=== PATIENT | female | born 1935 | race Caucasian/White ===

== ENCOUNTER 2023-09-02 09:55 | Inpatient (IN) | payer MEDICARE, OTHER ==
[~2023-09-02] VITALS: Ht 160 cm; Wt 78.3 kg
[2023-09-02] MEDS ORDERED: MORPHINE SULFATE 4 MG/ML SYR/VIAL IV ONE (13:00)
[2023-09-02] MEDS ORDERED: ONDANSETRON HCL 4 MG/2 ML VIAL IV ONE (13:00)
[2023-09-02 14:07] LABS: Albumin 4.3 g/dL (3.2-4.8); Alkaline Phosphatase 61 U/L (46-116); Aspartate Aminotransferase 19 U/L (13-40); Bilirubin, Total 0.7 mg/dL (0.2-1.0); Calcium 9.8 mg/dL (8.5-10.1); Chloride 106 mmol/L (98-107); Glucose 112 mg/dL (74-106); Potassium 4.2 mmol/L (3.5-5.1); Sodium 139 mmol/L (136-145); Total Protein 6.9 g/dL (5.7-8.2)
[2023-09-02 14:10] LABS: Alanine Aminotransferase < 9 U/L (7-40); Anion Gap 8 (5-15); Carbon Dioxide 25 mmol/L (20-30)
[2023-09-02 14:11] LABS: BUN/Creatinine Ratio 9.5 (10.0-20.0); Blood Urea Nitrogen 6 mg/dL (9-23)
[2023-09-02 14:20] LABS: Basophils # (auto) 0 10 ^3/uL (0-0.2); Basophils % (auto) 0.2 % (0.0-2.0); Eosinophils # (auto) 0 10 ^3/uL (0-0.8); Eosinophils % (auto) 0.1 % (0.0-7.0); Lymphocytes # (auto) 0.6 10 ^3/uL (0.4-5.4); Lymphocytes % (auto) 3.5 % (10.0-50.0); Mean Corpuscular Hgb Conc. 32.6 g/dL (32.0-36.0); Monocytes # (auto) 1.1 10 ^3/uL (0-1.3); Monocytes % (auto) 6.5 % (0.0-12.0); Neutrophils # (auto) 14.6 10 ^3/uL (1.6-8.6); Neutrophils % (auto) 89.7 % (37.0-80.0); Red Blood Cells 4.64 10^6/uL (4.0-5.20); Red Cell Distribution Width 14.9 % (11.8-14.3); White Blood Cell 16.3 10^3/uL (4.4-10.8)
[2023-09-02 14:35] LABS: INR 1.08 (0.9-1.15); Partial Thromboplastin Time 27.3 SEC (24.5-34.5); Prothrombin Time 11.3 sec (9.3-11.8)
[2023-09-02 15:46] LABS: Urine Bacteria NONE SEEN /hpf (None Seen); Urine Blood Negative /uL (Negative); Urine Clarity Clear (Clear); Urine Color Yellow (Yellow); Urine Protein, UAD Negative (Negative); Urine Specific Gravity 1.016 (1.001-1.035); Urine Urobilinogen Normal (Negative); Urine WBC 1 /hpf (0 - 5); Urine pH 6.5 (5.0-8.0)
[2023-09-02] MEDS ORDERED: HYDROcodone-ACET 5/325MG TAB PO ONE (16:30)
[2023-09-02] MEDS ORDERED: ACETAMINOPHEN 325 MG TAB PO PRN (16:45)
[2023-09-02] MEDS: SODIUM CHLORIDE 0.9% 1,000 ML IV SCH (16:45)
[2023-09-02] MEDS ORDERED: PANTOPRAZOLE 40 MG/10 ML VIAL INJ IV ONE (16:45)
[2023-09-02] MEDS ORDERED: cefTRIAXone 1GM/50ML D5W 50 ML IV ONE (17:45)
[2023-09-02] MEDS ORDERED: SODIUM CHLORIDE 0.9% 1,000 ML IV ONE (17:45)
[2023-09-02 20:10] VITALS: PULSE 69; RESP 18; O2SAT 94
[2023-09-02] MEDS: HYDROcodone-ACET 5/325MG TAB PO PRN (22:07)
[2023-09-02] MEDS: hydrALAZINE HCL 20 MG/ML VL IV PRN (22:14)
[2023-09-03] MEDS: ONDANSETRON HCL 4 MG/2 ML VIAL IV PRN ×2 (01:52→10:31)
[2023-09-03] MEDS: MORPHINE SULFATE INJ 2 MG/ml SYRG IV PRN ×2 (01:53→09:26)
[2023-09-03] MEDS: SODIUM CHLORIDE 0.9% 1,000 ML IV SCH (02:01)
[2023-09-03 02:14] LABS: COVID19 ANTIGEN SOFIA FIA NEGATIVE (NEGATIVE)
[2023-09-03 05:29] LABS: Basophils # (auto) 0 10 ^3/uL (0-0.2); Basophils % (auto) 0.2 % (0.0-2.0); Eosinophils # (auto) 0 10 ^3/uL (0-0.8); Eosinophils % (auto) 0.1 % (0.0-7.0); Hematocrit 32.7 % (36.0-46.0); Hemoglobin 11.1 g/dL (12.2-16.2); Lymphocytes # (auto) 0.7 10 ^3/uL (0.4-5.4); Lymphocytes % (auto) 7.1 % (10.0-50.0); Mean Corpuscular Hemoglobin 28.4 pg (28.0-32.0); Mean Corpuscular Hgb Conc. 33.8 g/dL (32.0-36.0); Mean Corpuscular Volume 84.2 fL (80.0-100.0); Monocytes # (auto) 1.2 10 ^3/uL (0-1.3); Monocytes % (auto) 11.8 % (0.0-12.0); Neutrophils # (auto) 8.3 10 ^3/uL (1.6-8.6); Neutrophils % (auto) 80.8 % (37.0-80.0); Red Blood Cells 3.89 10^6/uL (4.0-5.20); Red Cell Distribution Width 14.3 % (11.8-14.3); White Blood Cell 10.3 10^3/uL (4.4-10.8)
[2023-09-03 05:40] LABS: Alanine Aminotransferase 22 U/L (7-40); Albumin 3.8 g/dL (3.2-4.8); Alkaline Phosphatase 52 U/L (46-116); Anion Gap 9 (5-15); Aspartate Aminotransferase 60 U/L (13-40); BUN/Creatinine Ratio 15.3 (10.0-20.0); Blood Urea Nitrogen 9 mg/dL (9-23); Calcium 8.6 mg/dL (8.7-10.4); Carbon Dioxide 24 mmol/L (20-30); Chloride 107 mmol/L (98-107); Glucose 126 mg/dL (74-106); Potassium 3.7 mmol/L (3.5-5.1); Sodium 140 mmol/L (136-145)
[2023-09-03 05:41] LABS: Bilirubin, Total 1.1 mg/dL (0.2-1.0); Total Protein 6.1 g/dL (5.7-8.2)
[2023-09-03 08:00] VITALS: PULSE 80; RESP 19; O2SAT 96
[2023-09-03 08:55] VITALS: BP 178/64; PULSE 69; RESP 18; TEMP 98.4; O2SAT 99
[2023-09-03] MEDS: cefTRIAXone 1GM/50ML D5W 50 ML IV SCH (09:27)
[2023-09-03] MEDS ORDERED: PANTOPRAZOLE 40 MG/10 ML VIAL INJ IV SCH (10:00)
[2023-09-03] MEDS ORDERED: EZET10TA22 PO (12:21)
[2023-09-03] MEDS ORDERED: DICL1.3P TOP (12:21)
[2023-09-03] MEDS ORDERED: PANT1INJ3 PO (12:24)
[2023-09-03] MEDS ORDERED: NIFE1TAB36 PO (12:24)
[2023-09-03] MEDS ORDERED: ASPI-543 PO (12:24)
[2023-09-03] MEDS ORDERED: ROSU20TA14 PO (12:24)
[2023-09-03] MEDS: hydrALAZINE HCL 20 MG/ML VL IV PRN (13:32)
[2023-09-03] MEDS ORDERED: NIFEdipine ER 30 MG TAB PO ONE (13:45)
[2023-09-03 17:00] VITALS: BP 166/53; PULSE 97; RESP 20; TEMP 97.8; O2SAT 90
[2023-09-03 20:00] VITALS: O2SAT 97
[2023-09-03 22:00] VITALS: BP 167/51; PULSE 72; RESP 19; TEMP 99.6; O2SAT 96
[2023-09-03 22:15] VITALS: BP 150/53; PULSE 87; RESP 17; TEMP 98.9
[2023-09-03] MEDS: HYDROcodone-ACET 5/325MG TAB PO PRN (22:36)
[2023-09-03] MEDS: ATORVASTATIN 20 MG TAB PO SCH (22:36)
[2023-09-04] VITALS (7 sets, daily range): BP systolic 145–150; BP diastolic 42–66; PULSE 65–72; RESP 16–19; TEMP 98.1–99.1; O2SAT 95–99
[2023-09-04] MEDS: SODIUM CHLORIDE 0.9% 1,000 ML IV SCH ×2 (01:45→18:47)
[2023-09-04] MEDS: MORPHINE SULFATE INJ 2 MG/ml SYRG IV PRN ×2 (05:42→17:52)
[2023-09-04] MEDS: cefTRIAXone 1GM/50ML D5W 50 ML IV SCH (09:00)
[2023-09-04] MEDS: NIFEdipine ER 30 MG TAB PO SCH (09:40)
[2023-09-04] MEDS ORDERED: ceFAZolin 2 GM/D5W100ml 100 ML IV ONE (09:44)
[2023-09-04] MEDS ORDERED: MIDAZOLAM HCL 2MG/2ML 2ml VIAL (1mg/ml) ONE (09:46)
[2023-09-04] MEDS ORDERED: fentaNYL CITRATE 100 MCG/2 ML VL ONE (09:46)
[2023-09-04] MEDS ORDERED: BUPIVACAINE 0.5% P/F INJ 10 ML VIAL ONE (09:56)
[2023-09-04] MEDS ORDERED: TETRACAINE 1% INJ 2 ML VIAL IJ ONE (09:57)
[2023-09-04] MEDS ORDERED: LACTATED RINGER'S 1,000 ML IV SCH (12:30)
[2023-09-04] MEDS ORDERED: ePHEDrine SULFATE 50 MG/ML AMP IV PRN (13:00)
[2023-09-04] MEDS ORDERED: MORPHINE SULFATE 4 MG/ML SYR/VIAL IV PRN (13:00)
[2023-09-04] MEDS ORDERED: ONDANSETRON HCL 4 MG/2 ML VIAL IV PRN (13:00)
[2023-09-04] MEDS ORDERED: LABETALOL HCL 5 MG/ML 4ML SYRINGE IV PRN (13:00)
[2023-09-04] MEDS ORDERED: HYDROmorphone HCL 2 MG/ML VL/or syr IV PRN (13:00)
[2023-09-04] MEDS ORDERED: MIDAZOLAM HCL 2MG/2ML 2ml VIAL (1mg/ml) IV PRN (13:00)
[2023-09-04] MEDS: HYDROcodone-ACET 5/325MG TAB PO PRN (18:52)
[2023-09-04] MEDS: ATORVASTATIN 20 MG TAB PO SCH (21:08)
[2023-09-05] VITALS (7 sets, daily range): BP systolic 134–158; BP diastolic 45–62; PULSE 88–101; RESP 16–20; TEMP 98–99.4; O2SAT 91–96
[2023-09-05 06:54] LABS: Basophils # (auto) 0 10 ^3/uL (0-0.2); Basophils % (auto) 0.2 % (0.0-2.0); Eosinophils # (auto) 0 10 ^3/uL (0-0.8); Eosinophils % (auto) 0.1 % (0.0-7.0); Hematocrit 25.6 % (36.0-46.0); Hemoglobin 8.6 g/dL (12.2-16.2); Lymphocytes # (auto) 0.7 10 ^3/uL (0.4-5.4); Lymphocytes % (auto) 6.6 % (10.0-50.0); Mean Corpuscular Hgb Conc. 33.8 g/dL (32.0-36.0); Mean Corpuscular Volume 85.9 fL (80.0-100.0); Monocytes # (auto) 1.5 10 ^3/uL (0-1.3); Monocytes % (auto) 14.9 % (0.0-12.0); Neutrophils # (auto) 7.9 10 ^3/uL (1.6-8.6); Neutrophils % (auto) 78.2 % (37.0-80.0); Red Blood Cells 2.98 10^6/uL (4.0-5.20); Red Cell Distribution Width 14.8 % (11.8-14.3); White Blood Cell 10.1 10^3/uL (4.4-10.8)
[2023-09-05 06:56] LABS: Alanine Aminotransferase 61 U/L (7-40); Albumin 3.4 g/dL (3.2-4.8); Alkaline Phosphatase 80 U/L (46-116); Anion Gap 9 (5-15); Aspartate Aminotransferase 67 U/L (13-40); BUN/Creatinine Ratio 21.6 (10.0-20.0); Bilirubin, Total 0.9 mg/dL (0.2-1.0); Blood Urea Nitrogen 11 mg/dL (9-23); Carbon Dioxide 26 mmol/L (20-30); Chloride 106 mmol/L (98-107); Glucose 137 mg/dL (74-106); Potassium 3.7 mmol/L (3.5-5.1); Sodium 141 mmol/L (136-145); Total Protein 5.5 g/dL (5.7-8.2)
[2023-09-05] MEDS: HYDROcodone-ACET 5/325MG TAB PO PRN ×3 (09:12→21:43)
[2023-09-05] MEDS: NIFEdipine ER 30 MG TAB PO SCH (09:12)
[2023-09-05] MEDS: ENOXAPARIN SOD 40 MG/0.4 ML SYRINGE SC SCH (09:13)
[2023-09-05] MEDS: SODIUM CHLORIDE 0.9% 1,000 ML IV SCH (09:13)
[2023-09-05] MEDS: hydrALAZINE HCL 20 MG/ML VL IV PRN (17:04)
[2023-09-05] MEDS: MORPHINE SULFATE INJ 2 MG/ml SYRG IV PRN (18:08)
[2023-09-05] MEDS: ATORVASTATIN 20 MG TAB PO SCH (21:43)
[2023-09-06] VITALS (9 sets, daily range): BP systolic 115–161; BP diastolic 43–56; PULSE 87–99; RESP 16–20; TEMP 98.5–99.3; O2SAT 90–98
[2023-09-06] MEDS: SODIUM CHLORIDE 0.9% 1,000 ML IV SCH (06:52)
[2023-09-06] MEDS: NIFEdipine ER 30 MG TAB PO SCH (09:29)
[2023-09-06] MEDS: ENOXAPARIN SOD 40 MG/0.4 ML SYRINGE SC SCH (09:29)
[2023-09-06] MEDS ORDERED: LORazepam 2MG/ML-1ML VIAL IV PRN (10:15)
[2023-09-06 10:20] LABS: Basophils # (auto) 0 10 ^3/uL (0-0.2); Eosinophils # (auto) 0 10 ^3/uL (0-0.8); Eosinophils % (auto) 0.5 % (0.0-7.0); Hematocrit 23.3 % (36.0-46.0); Hemoglobin 7.9 g/dL (12.2-16.2); Lymphocytes # (auto) 0.8 10 ^3/uL (0.4-5.4); Mean Corpuscular Hgb Conc. 33.8 g/dL (32.0-36.0); Monocytes # (auto) 1.2 10 ^3/uL (0-1.3); Red Cell Distribution Width 14.7 % (11.8-14.3); White Blood Cell 10.1 10^3/uL (4.4-10.8)
[2023-09-06 10:28] LABS: Basophils % (auto) 0.3 % (0.0-2.0); Lymphocytes % (auto) 7.9 % (10.0-50.0); Mean Corpuscular Hemoglobin 29.2 pg (28.0-32.0); Mean Corpuscular Volume 86.4 fL (80.0-100.0); Monocytes % (auto) 11.8 % (0.0-12.0); Neutrophils # (auto) 8.1 10 ^3/uL (1.6-8.6); Neutrophils % (auto) 79.5 % (37.0-80.0)
[2023-09-06] MEDS: HYDROcodone-ACET 5/325MG TAB PO PRN ×2 (11:09→18:07)
[2023-09-06 12:17] LABS: COVID19 ANTIGEN SOFIA FIA NEGATIVE (NEGATIVE)
[2023-09-06 12:55] LABS: Free T4 (Free Thyroxine) 0.99 ng/dL (0.89-1.76)
[2023-09-06 12:59] LABS: Folate (Folic Acid) 7.4 ng/mL (>5.38)
== END 2023-09-06 21:09 | DRG 482 ==
LOC: ER 09:55 → EDBD 09:55 → OVERFLOW 16:44 → CENTRAL 09-03 08:58 → TELE-CENTR 09-04 19:00
PROVIDERS: ADMIT Nurse Practitioner Family; ATTEND Family Medicine
PROC: 0QS634Z Reposition Right Upper Femur with Internal Fixation Device, Percutaneous Approach (ICD-10-PCS; principal; 2023-09-04 10:36)
PROC: 30233N1 Transfusion of Nonautologous Red Blood Cells into Peripheral Vein, Percutaneous Approach (ICD-10-PCS; 2023-09-06)
DX: S72.141A Displaced intertrochanteric fracture of right femur, initial encounter for closed fracture (principal); D72.829 Elevated white blood cell count, unspecified; I10 Essential (primary) hypertension; F03.90 Unspecified dementia, unspecified severity, without behavioral disturbance, psychotic disturbance, mood disturbance, and anxiety; G89.29 Other chronic pain; E66.9 Obesity, unspecified; Z60.2 Problems related to living alone; Z20.822 Contact with and (suspected) exposure to COVID-19; E78.00 Pure hypercholesterolemia, unspecified; W06.XXXA Fall from bed, initial encounter; Z95.0 Presence of cardiac pacemaker; Y92.003 Bedroom of unspecified non-institutional (private) residence as the place of occurrence of the external cause; Z68.30 Body mass index [BMI] 30.0-30.9, adult; Z88.2 Allergy status to sulfonamides; Z82.49 Family history of ischemic heart disease and other diseases of the circulatory system; Z90.710 Acquired absence of both cervix and uterus; Z91.81 History of falling; Y93.89 Activity, other specified; Y92.098 Other place in other non-institutional residence as the place of occurrence of the external cause; Y99.8 Other external cause status; I16.0 Hypertensive urgency
CPT/HCPCS: 36415; 71045; 73502; 76000; 80053; 81001; 82607; 82746; 84439; 84443; 85025; 85610; 85730; 86850; 86900; 86901; 86920; 87040; 87426; 93005; 93306; 97110; 97163; A6198; C9113; G0378; J2250; J2405; J3490

== ENCOUNTER 2023-09-14 12:36 | Inpatient (IN) | payer MEDICARE ==
[~2023-09-14] VITALS: Ht 167.6 cm; Wt 79.4 kg
[~2023-09-14 12:36] MED LIST: ASPI-543 PO; DICL1.3P TOP; EZET10TA22 PO; NIFE1TAB36 PO; PANT1INJ3 PO; ROSU20TA14 PO
[2023-09-14] MEDS ORDERED: SODIUM CHLORIDE 0.9% 500 ML IVB ONE (13:00)
[2023-09-14 14:14] LABS: Basophils # (auto) 0 10 ^3/uL (0-0.2); Basophils % (auto) 0.2 % (0.0-2.0); Eosinophils # (auto) 0 10 ^3/uL (0-0.8); Hematocrit 30.8 % (36.0-46.0); Hemoglobin 10.1 g/dL (12.2-16.2); Lymphocytes # (auto) 0.6 10 ^3/uL (0.4-5.4); Lymphocytes % (auto) 9.7 % (10.0-50.0); Mean Corpuscular Hemoglobin 28.7 pg (28.0-32.0); Mean Corpuscular Hgb Conc. 32.9 g/dL (32.0-36.0); Mean Corpuscular Volume 87.1 fL (80.0-100.0); Monocytes % (auto) 16.6 % (0.0-12.0); Neutrophils # (auto) 4.6 10 ^3/uL (1.6-8.6); Neutrophils % (auto) 73.5 % (37.0-80.0); Nucleated Red Blood Cells % 0.1 %; Red Blood Cells 3.53 10^6/uL (4.0-5.20); Red Cell Distribution Width 16.5 % (11.8-14.3); White Blood Cell 6.2 10^3/uL (4.4-10.8)
[2023-09-14 14:28] LABS: INR 1.14 (0.9-1.15); Partial Thromboplastin Time 29.3 SEC (24.5-34.5); Prothrombin Time 11.9 sec (9.3-11.8)
[2023-09-14 14:31] LABS: Alanine Aminotransferase 24 U/L (7-40); Alkaline Phosphatase 102 U/L (46-116); Anion Gap 6 (5-15); Aspartate Aminotransferase 45 U/L (13-40); BUN/Creatinine Ratio 42.3 (10.0-20.0); Blood Urea Nitrogen 22 mg/dL (9-23); Calcium 7.9 mg/dL (8.7-10.4); Carbon Dioxide 31 mmol/L (20-30); Chloride 107 mmol/L (98-107); Glucose 115 mg/dL (74-106); Lipase 28 U/L (12-53); Potassium 3.6 mmol/L (3.5-5.1); Sodium 144 mmol/L (136-145)
[2023-09-14 14:32] LABS: Bilirubin, Total 1.3 mg/dL (0.2-1.0); Total Protein 5.2 g/dL (5.7-8.2)
[2023-09-14 14:45] VITALS: PULSE 90; RESP 13; O2SAT 94
[2023-09-14] MEDS ORDERED: NITROGLYCERIN 0.4 MG SL TAB SL PRN (16:00)
[2023-09-14] MEDS ORDERED: MORPHINE SULFATE INJ 2 MG/ml SYRG IV PRN (16:00)
[2023-09-14] MEDS ORDERED: ACETAMINOPHEN 325 MG TAB PO PRN (16:00)
[2023-09-14] MEDS ORDERED: PANTOPRAZOLE 40 MG/10 ML VIAL INJ IV ONE (16:00)
[2023-09-14] MEDS ORDERED: DOCUSATE SOD 100 MG CAP PO ONE (16:15)
[2023-09-14] MEDS ORDERED: metroNIDAZOLE 500MG/100ML 100 ML IV ONE (16:30)
[2023-09-14] MEDS: SODIUM CHLORIDE 0.9% 1,000 ML IV SCH (17:00)
[2023-09-14 20:00] VITALS: PULSE 78; RESP 24; O2SAT 94
[2023-09-14 22:50] LABS: Urine Bacteria FEW /hpf (None Seen); Urine Blood Negative /uL (Negative); Urine Clarity HAZY (Clear); Urine Color Yellow (Yellow); Urine Mucus FEW (None Seen); Urine Protein, UAD TRACE (Negative); Urine Specific Gravity 1.024 (1.001-1.035); Urine WBC 34 /hpf (0 - 5)
[2023-09-14] MEDS: DOCUSATE SOD 100 MG CAP PO SCH (22:56)
[2023-09-15] VITALS (7 sets, daily range): BP systolic 158–176; BP diastolic 56–61; PULSE 56–84; RESP 12–16; TEMP 98–98.4; O2SAT 94–97
[2023-09-15] MEDS: hydrALAZINE HCL 20 MG/ML VL IV PRN (00:28)
[2023-09-15] MEDS: HYDROcodone-ACET 5/325MG TAB PO PRN (03:46)
[2023-09-15 05:18] LABS: Basophils # (auto) 0 10 ^3/uL (0-0.2); Basophils % (auto) 0.2 % (0.0-2.0); Eosinophils # (auto) 0 10 ^3/uL (0-0.8); Hematocrit 30.5 % (36.0-46.0); Lymphocytes # (auto) 0.5 10 ^3/uL (0.4-5.4); Lymphocytes % (auto) 7.7 % (10.0-50.0); Mean Corpuscular Hemoglobin 28.4 pg (28.0-32.0); Mean Corpuscular Hgb Conc. 32.6 g/dL (32.0-36.0); Mean Corpuscular Volume 86.9 fL (80.0-100.0); Monocytes # (auto) 0.8 10 ^3/uL (0-1.3); Monocytes % (auto) 10.8 % (0.0-12.0); Neutrophils # (auto) 5.7 10 ^3/uL (1.6-8.6); Neutrophils % (auto) 81.3 % (37.0-80.0); Nucleated Red Blood Cells % 0.1 %; Red Blood Cells 3.51 10^6/uL (4.0-5.20); Red Cell Distribution Width 16.4 % (11.8-14.3)
[2023-09-15] MEDS: SODIUM CHLORIDE 0.9% 1,000 ML IV SCH (08:40)
[2023-09-15] MEDS: DOCUSATE SOD 100 MG CAP PO SCH ×2 (11:19→21:40)
[2023-09-15] MEDS: PANTOPRAZOLE 40 MG/10 ML VIAL INJ IV SCH (11:19)
[2023-09-15] MEDS: ATORVASTATIN 20 MG TAB PO SCH (11:20)
[2023-09-15] MEDS: NIFEdipine ER 30 MG TAB PO SCH (11:20)
[2023-09-15] MEDS ORDERED: cefTRIAXone 1GM/50ML D5W 50 ML IV ONE (12:00)
[2023-09-15] MEDS: metroNIDAZOLE 500MG/100ML 100 ML IV SCH ×2 (15:12→21:40)
[2023-09-16] VITALS (7 sets, daily range): BP systolic 153–166; BP diastolic 55–77; PULSE 64–77; RESP 14–20; TEMP 97–98.7; O2SAT 95–96
[2023-09-16] MEDS: SODIUM CHLORIDE 0.9% 1,000 ML IV SCH ×2 (01:20→18:00)
[2023-09-16] MEDS: metroNIDAZOLE 500MG/100ML 100 ML IV SCH ×3 (05:55→22:30)
[2023-09-16] MEDS: DOCUSATE SOD 100 MG CAP PO SCH ×3 (09:41→22:29)
[2023-09-16] MEDS: ATORVASTATIN 20 MG TAB PO SCH (09:41)
[2023-09-16] MEDS: cefTRIAXone 1GM/50ML D5W 50 ML IV SCH (09:41)
[2023-09-16] MEDS: PANTOPRAZOLE 40 MG/10 ML VIAL INJ IV SCH (09:44)
[2023-09-16] MEDS: NIFEdipine ER 30 MG TAB PO SCH (09:44)
[2023-09-16] MEDS: MEGESTROL ACET 400MG/10ML ORAL SUSP PO SCH (10:00)
[2023-09-16] MEDS: hydrALAZINE HCL 20 MG/ML VL IV PRN (12:44)
[2023-09-16] MEDS: HYDROcodone-ACET 5/325MG TAB PO PRN (13:31)
[2023-09-17] VITALS (7 sets, daily range): BP systolic 130–173; BP diastolic 47–64; PULSE 65–88; RESP 16–20; TEMP 97.8–98.5; O2SAT 92–98
[2023-09-17] MEDS: metroNIDAZOLE 500MG/100ML 100 ML IV SCH ×3 (05:08→22:38)
[2023-09-17] MEDS: hydrALAZINE HCL 20 MG/ML VL IV PRN ×2 (06:12→15:47)
[2023-09-17] MEDS: cefTRIAXone 1GM/50ML D5W 50 ML IV SCH (09:00)
[2023-09-17] MEDS: DOCUSATE SOD 100 MG CAP PO SCH ×2 (11:41→22:12)
[2023-09-17] MEDS: PANTOPRAZOLE 40 MG/10 ML VIAL INJ IV SCH (11:41)
[2023-09-17] MEDS: NIFEdipine ER 30 MG TAB PO SCH (11:45)
[2023-09-17] MEDS: SODIUM CHLORIDE 0.9% 1,000 ML IV SCH (11:45)
[2023-09-17] MEDS ORDERED: TPN PER PHARMACY 0 ML IV SCH (11:45)
[2023-09-17] MEDS: MEGESTROL ACET 400MG/10ML ORAL SUSP PO SCH (11:50)
[2023-09-17] MEDS: ATORVASTATIN 20 MG TAB PO SCH (11:50)
[2023-09-17] MEDS ORDERED: LIDOCAINE 1% (LOCAL ANESTH.) PF 5ml SDV ID ONE (13:00)
[2023-09-17 14:16] LABS: Alanine Aminotransferase 12 U/L (7-40); Albumin 2.7 g/dL (3.2-4.8); Alkaline Phosphatase 72 U/L (46-116); Anion Gap 6 (5-15); Aspartate Aminotransferase 30 U/L (13-40); BUN/Creatinine Ratio 21.6 (10.0-20.0); Bilirubin, Total 0.7 mg/dL (0.2-1.0); Blood Urea Nitrogen 8 mg/dL (9-23); Calcium 7.5 mg/dL (8.7-10.4); Carbon Dioxide 29 mmol/L (20-30); Chloride 107 mmol/L (98-107); Glucose 133 mg/dL (74-106); Magnesium 1.7 mg/dL (1.6-2.6); Phosphorus 2.3 mg/dL (2.4-5.1); Sodium 142 mmol/L (136-145)
[2023-09-17 14:20] LABS: Potassium 2.3 mmol/L (3.5-5.1)
[2023-09-17] MEDS ORDERED: POTASSIUM CHL 20MEQ/100ML 100 ML IV SCH (14:30)
[2023-09-17] MEDS ORDERED: POTASSIUM PHOSPHATE 22 MEQ in SODIUM CHL 0.9% 100 ML IV ONE (14:30)
[2023-09-17] MEDS: POTASSIUM CHL 20MEQ/100ML 100 ML IV SCH ×3 (15:31→19:17)
[2023-09-17] MEDS ORDERED: FUROSEMIDE 40 MG/4 ML VIAL IV ONE ×2 (17:00→20:00)
[2023-09-17] MEDS ORDERED: AMINO ACID INFUSION IN D10W 1,000 ML IV NR (20:00)
[2023-09-17] MEDS: SODIUM CHLOR 0.9% PF (SALINE LOCK) 10ML VIAL/SYR IV SCH (22:18)
[2023-09-18] VITALS (7 sets, daily range): BP systolic 118–161; BP diastolic 51–70; PULSE 61–79; RESP 18–20; TEMP 97.8–98.8; O2SAT 94–96
[2023-09-18] MEDS ORDERED: DEXTROSE (50%) 50ML SYRG IV SCH
[2023-09-18] MEDS: SODIUM CHLORIDE 0.9% 1,000 ML IV SCH ×2 (03:20→20:00)
[2023-09-18] MEDS: ACCU-CHEK COMFORT CURVE STRIP VI SCH ×4 (06:26→17:19)
[2023-09-18] MEDS: metroNIDAZOLE 500MG/100ML 100 ML IV SCH ×3 (06:26→21:43)
[2023-09-18] MEDS: InsuLIN REG 1unit/0.01ml Soln (100units/ml) SC SCH ×4 (06:30→17:19)
[2023-09-18 08:26] LABS: Alanine Aminotransferase 14 U/L (7-40); Albumin 2.7 g/dL (3.2-4.8); Alkaline Phosphatase 66 U/L (46-116); Anion Gap 8 (5-15); Aspartate Aminotransferase 28 U/L (13-40); BUN/Creatinine Ratio 17.9 (10.0-20.0); Bilirubin, Total 0.7 mg/dL (0.2-1.0); Blood Urea Nitrogen 7 mg/dL (9-23); Calcium 7.8 mg/dL (8.5-10.1); Carbon Dioxide 28 mmol/L (20-30); Chloride 107 mmol/L (98-107); Glucose 131 mg/dL (74-106); Phosphorus 2.1 mg/dL (2.4-5.1); Sodium 143 mmol/L (136-145); Total Protein 4.8 g/dL (5.7-8.2); Triglycerides 60 mg/dL (< 150)
[2023-09-18 08:29] LABS: Potassium 2.3 mmol/L (3.5-5.1)
[2023-09-18 08:55] LABS: Magnesium 1.6 mg/dL (1.6-2.6)
[2023-09-18] MEDS: PANTOPRAZOLE 40 MG/10 ML VIAL INJ IV SCH (09:29)
[2023-09-18] MEDS: NIFEdipine ER 30 MG TAB PO SCH (09:29)
[2023-09-18] MEDS: ATORVASTATIN 20 MG TAB PO SCH (09:29)
[2023-09-18] MEDS: DOCUSATE SOD 100 MG CAP PO SCH ×2 (09:29→21:42)
[2023-09-18] MEDS: SODIUM CHLOR 0.9% PF (SALINE LOCK) 10ML VIAL/SYR IV SCH ×2 (09:30→21:43)
[2023-09-18] MEDS: cefTRIAXone 1GM/50ML D5W 50 ML IV SCH (09:35)
[2023-09-18] MEDS: MEGESTROL ACET 400MG/10ML ORAL SUSP PO SCH (09:54)
[2023-09-18] MEDS: POTASSIUM CHL 20MEQ/100ML 100 ML IV SCH ×2 (09:54→13:24)
[2023-09-18] MEDS ORDERED: POTASSIUM PHOSPHATE 22 MEQ in SODIUM CHL 0.9% 100 ML IV ONE (17:00)
[2023-09-18] MEDS: hydrALAZINE HCL 20 MG/ML VL IV PRN (17:06)
[2023-09-18] MEDS ORDERED: TPN PER PHARMACY IV NR ×10 (20:00)
[2023-09-19] VITALS (8 sets, daily range): BP systolic 112–169; BP diastolic 46–58; PULSE 60–74; RESP 18–22; TEMP 98.5–99.3; O2SAT 94–97
[2023-09-19] MEDS: ACCU-CHEK COMFORT CURVE STRIP VI SCH ×4 (01:53→18:29)
[2023-09-19] MEDS: InsuLIN REG 1unit/0.01ml Soln (100units/ml) SC SCH ×4 (01:55→18:25)
[2023-09-19] MEDS: metroNIDAZOLE 500MG/100ML 100 ML IV SCH ×3 (06:18→21:29)
[2023-09-19] MEDS: SODIUM CHLORIDE 0.9% 1,000 ML IV SCH (06:18)
[2023-09-19 06:58] LABS: Basophils # (auto) 0 10 ^3/uL (0-0.2); Basophils % (auto) 0.2 % (0.0-2.0); Eosinophils # (auto) 0 10 ^3/uL (0-0.8); Eosinophils % (auto) 0.4 % (0.0-7.0); Hematocrit 29.5 % (36.0-46.0); Hemoglobin 9.7 g/dL (12.2-16.2); Lymphocytes # (auto) 0.9 10 ^3/uL (0.4-5.4); Lymphocytes % (auto) 13.7 % (10.0-50.0); Mean Corpuscular Hgb Conc. 32.8 g/dL (32.0-36.0); Mean Corpuscular Volume 85.4 fL (80.0-100.0); Monocytes # (auto) 0.6 10 ^3/uL (0-1.3); Monocytes % (auto) 9.4 % (0.0-12.0); Neutrophils # (auto) 5.2 10 ^3/uL (1.6-8.6); Neutrophils % (auto) 76.3 % (37.0-80.0); Red Blood Cells 3.45 10^6/uL (4.0-5.20); Red Cell Distribution Width 16.4 % (11.8-14.3); White Blood Cell 6.8 10^3/uL (4.4-10.8)
[2023-09-19 07:15] LABS: Alanine Aminotransferase 12 U/L (7-40); Albumin 2.5 g/dL (3.2-4.8); Alkaline Phosphatase 61 U/L (46-116); Anion Gap 7 (5-15); Aspartate Aminotransferase 28 U/L (13-40); BUN/Creatinine Ratio 22.6 (10.0-20.0); Bilirubin, Total 0.5 mg/dL (0.2-1.0); Blood Urea Nitrogen 7 mg/dL (9-23); Calcium 7.4 mg/dL (8.7-10.4); Carbon Dioxide 27 mmol/L (20-30); Chloride 108 mmol/L (98-107); Glucose 130 mg/dL (74-106); Magnesium 1.7 mg/dL (1.6-2.6); Phosphorus 2.1 mg/dL (2.4-5.1); Potassium 2.5 mmol/L (3.5-5.1); Sodium 142 mmol/L (136-145); Total Protein 4.6 g/dL (5.7-8.2)
[2023-09-19] MEDS: PANTOPRAZOLE 40 MG/10 ML VIAL INJ IV SCH (09:29)
[2023-09-19] MEDS: NIFEdipine ER 30 MG TAB PO SCH (09:30)
[2023-09-19] MEDS: DOCUSATE SOD 100 MG CAP PO SCH ×2 (09:30→21:26)
[2023-09-19] MEDS: ATORVASTATIN 20 MG TAB PO SCH (09:30)
[2023-09-19] MEDS: MEGESTROL ACET 400MG/10ML ORAL SUSP PO SCH (09:31)
[2023-09-19] MEDS: cefTRIAXone 1GM/50ML D5W 50 ML IV SCH (09:31)
[2023-09-19] MEDS: SODIUM CHLOR 0.9% PF (SALINE LOCK) 10ML VIAL/SYR IV SCH ×2 (09:50→21:29)
[2023-09-19] MEDS ORDERED: levoFLOXacin 500MG 100 ML IV ONE (11:45)
[2023-09-19] MEDS ORDERED: MAGNESIUM SULFATE 1GM/100ML 100 ML IV ONE (12:30)
[2023-09-19] MEDS ORDERED: POTASSIUM PHOSPHATE 44 MEQ in D5W 5% 250 ML IV ONE (12:30)
[2023-09-19] MEDS: POTASSIUM CHLORIDE 40 MEQ in D5W 5% 1,000 ML IV SCH ×2 (14:53→20:05)
[2023-09-19] MEDS ORDERED: TPN PER PHARMACY IV NR ×10 (20:00)
[2023-09-20] VITALS (7 sets, daily range): BP systolic 147–175; BP diastolic 44–73; PULSE 61–83; RESP 17–24; TEMP 97.5–98.6; O2SAT 94–98
[2023-09-20] MEDS: ACCU-CHEK COMFORT CURVE STRIP VI SCH ×4 (00:27→19:16)
[2023-09-20] MEDS: InsuLIN REG 1unit/0.01ml Soln (100units/ml) SC SCH ×4 (00:31→19:05)
[2023-09-20] MEDS: metroNIDAZOLE 500MG/100ML 100 ML IV SCH ×3 (05:56→22:09)
[2023-09-20] MEDS: hydrALAZINE HCL 20 MG/ML VL IV PRN (05:56)
[2023-09-20] MEDS: POTASSIUM CHLORIDE 40 MEQ in D5W 5% 1,000 ML IV SCH (05:59)
[2023-09-20 06:39] LABS: Alanine Aminotransferase 14 U/L (7-40); Albumin 2.7 g/dL (3.2-4.8); Alkaline Phosphatase 62 U/L (46-116); Anion Gap 6 (5-15); Aspartate Aminotransferase 27 U/L (13-40); BUN/Creatinine Ratio 21.9 (10.0-20.0); Blood Urea Nitrogen 7 mg/dL (9-23); Calcium 7.5 mg/dL (8.7-10.4); Carbon Dioxide 27 mmol/L (20-30); Chloride 104 mmol/L (98-107); Glucose 156 mg/dL (74-106); Magnesium 1.7 mg/dL (1.6-2.6); Sodium 137 mmol/L (136-145)
[2023-09-20 06:40] LABS: Bilirubin, Total 0.5 mg/dL (0.2-1.0); Phosphorus 2.2 mg/dL (2.4-5.1)
[2023-09-20 07:13] LABS: Basophils # (auto) 0 10 ^3/uL (0-0.2); Basophils % (auto) 0.1 % (0.0-2.0); Eosinophils # (auto) 0 10 ^3/uL (0-0.8); Eosinophils % (auto) 0.5 % (0.0-7.0); Hematocrit 31.4 % (36.0-46.0); Hemoglobin 10.5 g/dL (12.2-16.2); Lymphocytes # (auto) 0.8 10 ^3/uL (0.4-5.4); Lymphocytes % (auto) 8.4 % (10.0-50.0); Mean Corpuscular Hemoglobin 28.8 pg (28.0-32.0); Mean Corpuscular Hgb Conc. 33.4 g/dL (32.0-36.0); Mean Corpuscular Volume 86.2 fL (80.0-100.0); Monocytes # (auto) 0.8 10 ^3/uL (0-1.3); Monocytes % (auto) 8.4 % (0.0-12.0); Neutrophils % (auto) 82.6 % (37.0-80.0); Nucleated Red Blood Cells % 0.1 %; Red Blood Cells 3.64 10^6/uL (4.0-5.20); Red Cell Distribution Width 16.6 % (11.8-14.3); White Blood Cell 9.7 10^3/uL (4.4-10.8)
[2023-09-20] MEDS: PANTOPRAZOLE 40 MG/10 ML VIAL INJ IV SCH (08:39)
[2023-09-20] MEDS: levoFLOXacin 250MG 50 ML IV SCH (08:40)
[2023-09-20] MEDS: MEGESTROL ACET 400MG/10ML ORAL SUSP PO SCH (08:40)
[2023-09-20] MEDS: ATORVASTATIN 20 MG TAB PO SCH (08:40)
[2023-09-20] MEDS: NIFEdipine ER 30 MG TAB PO SCH (08:40)
[2023-09-20] MEDS: SODIUM CHLOR 0.9% PF (SALINE LOCK) 10ML VIAL/SYR IV SCH ×2 (08:42→22:10)
[2023-09-20] MEDS: DOCUSATE SOD 100 MG CAP PO SCH ×2 (10:00→22:00)
[2023-09-20] MEDS ORDERED: MAGNESIUM SULFATE 1GM/100ML 100 ML IV ONE (13:00)
[2023-09-20] MEDS ORDERED: POTASSIUM PHOSP 22MEQ(15MMOLE) in NS 100 ML IV ONE (14:00)
[2023-09-20] MEDS: POTASSIUM EFFERVESENT TAB 25 MEQ PO SCH ×2 (14:03→22:09)
[2023-09-20] MEDS ORDERED: TPN PER PHARMACY IV NR ×9 (20:00)
[2023-09-21] VITALS (7 sets, daily range): BP systolic 135–152; BP diastolic 49–70; PULSE 60–97; RESP 16–20; TEMP 97.8–98.8; O2SAT 94–98
[2023-09-21] MEDS: ACCU-CHEK COMFORT CURVE STRIP VI SCH ×4 (00:04→18:07)
[2023-09-21] MEDS: metroNIDAZOLE 500MG/100ML 100 ML IV SCH ×3 (06:16→21:54)
[2023-09-21] MEDS: InsuLIN REG 1unit/0.01ml Soln (100units/ml) SC SCH ×4 (06:21→18:07)
[2023-09-21 06:44] LABS: Basophils # (auto) 0 10 ^3/uL (0-0.2); Basophils % (auto) 0.2 % (0.0-2.0); Eosinophils # (auto) 0.1 10 ^3/uL (0-0.8); Eosinophils % (auto) 1.1 % (0.0-7.0); Hematocrit 29.9 % (36.0-46.0); Hemoglobin 9.9 g/dL (12.2-16.2); Lymphocytes # (auto) 0.9 10 ^3/uL (0.4-5.4); Lymphocytes % (auto) 9.5 % (10.0-50.0); Mean Corpuscular Hemoglobin 28.1 pg (28.0-32.0); Mean Corpuscular Hgb Conc. 33.1 g/dL (32.0-36.0); Mean Corpuscular Volume 85.1 fL (80.0-100.0); Monocytes % (auto) 11.1 % (0.0-12.0); Neutrophils # (auto) 7.3 10 ^3/uL (1.6-8.6); Neutrophils % (auto) 78.1 % (37.0-80.0); Red Blood Cells 3.51 10^6/uL (4.0-5.20); Red Cell Distribution Width 16.7 % (11.8-14.3); White Blood Cell 9.3 10^3/uL (4.4-10.8)
[2023-09-21 06:54] LABS: Alanine Aminotransferase 15 U/L (7-40); Albumin 2.8 g/dL (3.2-4.8); Alkaline Phosphatase 59 U/L (46-116); Anion Gap 5 (5-15); Aspartate Aminotransferase 24 U/L (13-40); BUN/Creatinine Ratio 28.2 (10.0-20.0); Blood Urea Nitrogen 11 mg/dL (9-23); Carbon Dioxide 28 mmol/L (20-30); Chloride 105 mmol/L (98-107); Glucose 139 mg/dL (74-106); Magnesium 2.2 mg/dL (1.6-2.6); Potassium 3.6 mmol/L (3.5-5.1); Sodium 138 mmol/L (136-145)
[2023-09-21 06:55] LABS: Bilirubin, Total 0.5 mg/dL (0.2-1.0); Phosphorus 2.9 mg/dL (2.4-5.1); Total Protein 5.2 g/dL (5.7-8.2)
[2023-09-21] MEDS: DOCUSATE SOD 100 MG CAP PO SCH ×2 (10:10→21:49)
[2023-09-21] MEDS: NIFEdipine ER 30 MG TAB PO SCH (10:10)
[2023-09-21] MEDS: PANTOPRAZOLE 40 MG/10 ML VIAL INJ IV SCH (10:11)
[2023-09-21] MEDS: ATORVASTATIN 20 MG TAB PO SCH (10:11)
[2023-09-21] MEDS: POTASSIUM EFFERVESENT TAB 25 MEQ PO SCH ×2 (10:11→21:50)
[2023-09-21] MEDS: MEGESTROL ACET 400MG/10ML ORAL SUSP PO SCH (10:12)
[2023-09-21] MEDS: levoFLOXacin 250MG 50 ML IV SCH (10:12)
[2023-09-21] MEDS: SODIUM CHLOR 0.9% PF (SALINE LOCK) 10ML VIAL/SYR IV SCH ×2 (10:13→21:51)
[2023-09-21] MEDS ORDERED: TPN PER PHARMACY IV NR ×8 (20:00)
[2023-09-22] VITALS (7 sets, daily range): BP systolic 142–160; BP diastolic 48–95; PULSE 62–96; RESP 15–18; TEMP 98.3–98.9; O2SAT 93–98
[2023-09-22] MEDS: ACCU-CHEK COMFORT CURVE STRIP VI SCH ×5 (00:22→23:29)
[2023-09-22] MEDS: InsuLIN REG 1unit/0.01ml Soln (100units/ml) SC SCH ×5 (06:00→23:33)
[2023-09-22] MEDS: metroNIDAZOLE 500MG/100ML 100 ML IV SCH ×3 (06:07→21:39)
[2023-09-22 07:21] LABS: Potassium 3.7 mmol/L (3.5-5.1)
[2023-09-22 07:22] LABS: Calcium 7.8 mg/dL (8.7-10.4)
[2023-09-22 07:27] LABS: BUN/Creatinine Ratio 42.4 (10.0-20.0)
[2023-09-22 07:29] LABS: Albumin 2.6 g/dL (3.2-4.8); Phosphorus 2.6 mg/dL (2.4-5.1)
[2023-09-22] MEDS: DOCUSATE SOD 100 MG CAP PO SCH ×2 (10:00→21:52)
[2023-09-22] MEDS: levoFLOXacin 250MG 50 ML IV SCH (10:44)
[2023-09-22] MEDS: PANTOPRAZOLE 40 MG/10 ML VIAL INJ IV SCH (10:53)
[2023-09-22] MEDS: SODIUM CHLOR 0.9% PF (SALINE LOCK) 10ML VIAL/SYR IV SCH ×2 (10:55→21:53)
[2023-09-22] MEDS: ATORVASTATIN 20 MG TAB PO SCH (10:57)
[2023-09-22] MEDS: NIFEdipine ER 30 MG TAB PO SCH (10:57)
[2023-09-22] MEDS ORDERED: SODIUM PHOSPHATES 20 MEQ in SODIUM CHL 0.9% 100 ML IV ONE (12:00)
[2023-09-22] MEDS: POTASSIUM EFFERVESENT TAB 25 MEQ PO SCH ×2 (12:16→21:51)
[2023-09-22] MEDS: TPN PER PHARMACY IV NR ×9 (20:18)
[2023-09-23 05:00] VITALS: BP 158/57; PULSE 76; RESP 20; TEMP 98.4; O2SAT 96
[2023-09-23] MEDS: metroNIDAZOLE 500MG/100ML 100 ML IV SCH ×3 (06:00→21:06)
[2023-09-23] MEDS: ACCU-CHEK COMFORT CURVE STRIP VI SCH ×3 (06:01→17:41)
[2023-09-23] MEDS: InsuLIN REG 1unit/0.01ml Soln (100units/ml) SC SCH ×3 (06:04→17:40)
[2023-09-23 06:48] LABS: Potassium 3.9 mmol/L (3.5-5.1)
[2023-09-23 06:55] LABS: BUN/Creatinine Ratio 38.2 (10.0-20.0)
[2023-09-23 06:56] LABS: Albumin 2.8 g/dL (3.2-4.8)
[2023-09-23 06:57] LABS: Phosphorus 2.9 mg/dL (2.4-5.1)
[2023-09-23 07:24] LABS: Magnesium 1.9 mg/dL (1.6-2.6)
[2023-09-23 08:00] VITALS: BP 118/49; PULSE 60; PULSE 77; PULSE 81; RESP 18; RESP 21; TEMP 98.4; O2SAT 95; O2SAT 96
[2023-09-23] MEDS: levoFLOXacin 250MG 50 ML IV SCH (08:48)
[2023-09-23] MEDS: PANTOPRAZOLE 40 MG/10 ML VIAL INJ IV SCH (08:48)
[2023-09-23] MEDS: DOCUSATE SOD 100 MG CAP PO SCH ×2 (08:49→21:03)
[2023-09-23] MEDS: ATORVASTATIN 20 MG TAB PO SCH (08:49)
[2023-09-23] MEDS: NIFEdipine ER 30 MG TAB PO SCH (08:49)
[2023-09-23] MEDS: SODIUM CHLOR 0.9% PF (SALINE LOCK) 10ML VIAL/SYR IV SCH ×2 (08:50→21:04)
[2023-09-23] MEDS: POTASSIUM EFFERVESENT TAB 25 MEQ PO SCH ×2 (09:54→21:03)
[2023-09-23 12:00] VITALS: BP 169/57; PULSE 78; RESP 18; TEMP 98.7; O2SAT 94
[2023-09-23 16:00] VITALS: BP 167/45; PULSE 72; RESP 20; TEMP 99.1; O2SAT 95
[2023-09-23] MEDS: TPN PER PHARMACY IV NR ×9 (19:52)
[2023-09-23 20:00] VITALS: PULSE 66; PULSE 75; RESP 18; O2SAT 92
[2023-09-23] MEDS ORDERED: TPN PER PHARMACY IV NR ×9 (20:00)
[2023-09-23 22:00] VITALS: BP 159/49; PULSE 75; RESP 18; TEMP 98.4; O2SAT 92
[2023-09-24] VITALS (8 sets, daily range): BP systolic 139–147; BP diastolic 45–81; PULSE 61–85; RESP 18–19; TEMP 97.7–100.3; O2SAT 96–98
[2023-09-24] MEDS: ACCU-CHEK COMFORT CURVE STRIP VI SCH ×4 (00:17→17:38)
[2023-09-24] MEDS: InsuLIN REG 1unit/0.01ml Soln (100units/ml) SC SCH ×4 (00:18→17:39)
[2023-09-24] MEDS: metroNIDAZOLE 500MG/100ML 100 ML IV SCH ×3 (05:42→21:01)
[2023-09-24 06:23] LABS: Potassium 4.4 mmol/L (3.5-5.1)
[2023-09-24 06:25] LABS: Calcium 8.1 mg/dL (8.7-10.4)
[2023-09-24 06:30] LABS: BUN/Creatinine Ratio 35.5 (10.0-20.0)
[2023-09-24 06:31] LABS: Albumin 2.8 g/dL (3.2-4.8)
[2023-09-24 06:32] LABS: Phosphorus 3.2 mg/dL (2.4-5.1)
[2023-09-24] MEDS: levoFLOXacin 250MG 50 ML IV SCH (09:18)
[2023-09-24] MEDS: PANTOPRAZOLE 40 MG/10 ML VIAL INJ IV SCH (09:18)
[2023-09-24] MEDS: SODIUM CHLOR 0.9% PF (SALINE LOCK) 10ML VIAL/SYR IV SCH ×2 (09:18→21:01)
[2023-09-24] MEDS: NIFEdipine ER 30 MG TAB PO SCH (09:19)
[2023-09-24] MEDS: POTASSIUM EFFERVESENT TAB 25 MEQ PO SCH ×2 (09:19→21:01)
[2023-09-24] MEDS: ATORVASTATIN 20 MG TAB PO SCH (09:20)
[2023-09-24] MEDS: DOCUSATE SOD 100 MG CAP PO SCH ×2 (09:20→21:01)
[2023-09-24] MEDS: HYDROcodone-ACET 5/325MG TAB PO PRN ×2 (15:08→21:18)
[2023-09-24] MEDS ORDERED: levoFLOXacin 250MG 50 ML IV ONE (18:15)
[2023-09-24] MEDS: TPN PER PHARMACY IV NR ×9 (21:00)
[2023-09-25] VITALS (11 sets, daily range): BP systolic 104–165; BP diastolic 40–99; PULSE 61–85; RESP 16–20; TEMP 98.1–99.1; O2SAT 96–99
[2023-09-25] MEDS: ACCU-CHEK COMFORT CURVE STRIP VI SCH ×4 (01:01→17:50)
[2023-09-25] MEDS: metroNIDAZOLE 500MG/100ML 100 ML IV SCH ×3 (05:37→21:28)
[2023-09-25] MEDS: InsuLIN REG 1unit/0.01ml Soln (100units/ml) SC SCH ×4 (05:39→17:50)
[2023-09-25] MEDS: HYDROcodone-ACET 5/325MG TAB PO PRN ×2 (05:41→15:37)
[2023-09-25 06:08] LABS: Alanine Aminotransferase 25 U/L (7-40); Albumin 2.9 g/dL (3.2-4.8); Alkaline Phosphatase 73 U/L (46-116); Anion Gap 7 (5-15); Aspartate Aminotransferase 45 U/L (13-40); BUN/Creatinine Ratio 48.5 (10.0-20.0); Blood Urea Nitrogen 16 mg/dL (9-23); Calcium 8.3 mg/dL (8.7-10.4); Carbon Dioxide 25 mmol/L (20-30); Chloride 106 mmol/L (98-107); Glucose 129 mg/dL (74-106); Potassium 4.3 mmol/L (3.5-5.1); Sodium 138 mmol/L (136-145)
[2023-09-25 06:09] LABS: Bilirubin, Total 0.4 mg/dL (0.2-1.0); Phosphorus 3.2 mg/dL (2.4-5.1); Total Protein 5.3 g/dL (5.7-8.2)
[2023-09-25 07:17] LABS: Triglycerides 37 mg/dL (< 150)
[2023-09-25] MEDS: NIFEdipine ER 30 MG TAB PO SCH (09:05)
[2023-09-25] MEDS: DOCUSATE SOD 100 MG CAP PO SCH ×2 (09:06→21:24)
[2023-09-25] MEDS: ATORVASTATIN 20 MG TAB PO SCH (09:06)
[2023-09-25] MEDS: PANTOPRAZOLE 40 MG/10 ML VIAL INJ IV SCH (09:07)
[2023-09-25] MEDS: SODIUM CHLOR 0.9% PF (SALINE LOCK) 10ML VIAL/SYR IV SCH ×2 (09:07→21:28)
[2023-09-25] MEDS: POTASSIUM EFFERVESENT TAB 25 MEQ PO SCH ×2 (14:47→21:24)
[2023-09-25] MEDS ORDERED: ALBUTEROL SULF 2.5 MG/0.5ML(0.5%) NEB SOLN NEB PRN (16:15)
[2023-09-25] MEDS: TPN PER PHARMACY IV NR ×18 (19:48→21:06)
[2023-09-25] MEDS: MIRTAZAPINE 30 MG TAB PO SCH (21:25)
[2023-09-25] MEDS: levoFLOXacin 500MG 100 ML IV SCH (21:26)
[2023-09-25] MEDS ORDERED: LORazepam 2MG/ML-1ML VIAL IV PRN (21:30)
[2023-09-25] MEDS ORDERED: CYANOCOBALAMIN (B-12) 1000 MCG/1 ML VIAL IM ONE (21:30)
[2023-09-26] VITALS (10 sets, daily range): BP systolic 142–173; BP diastolic 44–97; PULSE 60–94; RESP 16–24; TEMP 97.3–99.7; O2SAT 94–100
[2023-09-26] MEDS: ACCU-CHEK COMFORT CURVE STRIP VI SCH ×4 (00:44→18:27)
[2023-09-26] MEDS: HYDROcodone-ACET 5/325MG TAB PO PRN (05:53)
[2023-09-26] MEDS: InsuLIN REG 1unit/0.01ml Soln (100units/ml) SC SCH ×4 (05:57→18:00)
[2023-09-26 06:08] LABS: Alanine Aminotransferase 50 U/L (7-40); Albumin 2.9 g/dL (3.2-4.8); Alkaline Phosphatase 119 U/L (46-116); Anion Gap 6 (5-15); Aspartate Aminotransferase 82 U/L (13-40); BUN/Creatinine Ratio 35.7 (10.0-20.0); Bilirubin, Total 0.4 mg/dL (0.2-1.0); Blood Urea Nitrogen 15 mg/dL (9-23); Calcium 8.5 mg/dL (8.5-10.1); Carbon Dioxide 24 mmol/L (20-30); Chloride 107 mmol/L (98-107); Glucose 115 mg/dL (74-106); Phosphorus 3.4 mg/dL (2.4-5.1); Potassium 4.9 mmol/L (3.5-5.1); Sodium 137 mmol/L (136-145); Total Protein 5.6 g/dL (5.7-8.2)
[2023-09-26] MEDS: PANTOPRAZOLE 40 MG/10 ML VIAL INJ IV SCH (09:18)
[2023-09-26] MEDS: NIFEdipine ER 30 MG TAB PO SCH (09:19)
[2023-09-26] MEDS: ATORVASTATIN 20 MG TAB PO SCH (09:20)
[2023-09-26] MEDS: CYANOCOBALAMIN 500 MCG TAB PO SCH (09:20)
[2023-09-26] MEDS: SODIUM CHLOR 0.9% PF (SALINE LOCK) 10ML VIAL/SYR IV SCH ×2 (09:21→21:55)
[2023-09-26] MEDS: DOCUSATE SOD 100 MG CAP PO SCH ×2 (09:23→22:01)
[2023-09-26] MEDS: POTASSIUM EFFERVESENT TAB 25 MEQ PO SCH ×2 (10:00→22:00)
[2023-09-26 12:06] LABS: Magnesium 2.1 mg/dL (1.6-2.6)
[2023-09-26] MEDS ORDERED: cloNIDine HCL 0.1 MG TAB PO ONE (15:15)
[2023-09-26] MEDS: TPN PER PHARMACY IV NR ×9 (19:48)
[2023-09-26] MEDS ORDERED: TPN PER PHARMACY IV NR ×9 (20:00)
[2023-09-26] MEDS ORDERED: SODIUM PHOSPHATES 24 MEQ in SODIUM CHL 0.9% 100 ML IV ONE (20:00)
[2023-09-26] MEDS: levoFLOXacin 500MG 100 ML IV SCH (21:54)
[2023-09-26] MEDS: MIRTAZAPINE 30 MG TAB PO SCH (22:01)
[2023-09-27] VITALS (7 sets, daily range): BP systolic 145–165; BP diastolic 42–63; PULSE 63–73; RESP 17–18; TEMP 97.6–98.1; O2SAT 96–99
[2023-09-27] MEDS: cloNIDine HCL 0.1 MG TAB PO SCH ×5 (00:42→17:52)
[2023-09-27] MEDS: ACCU-CHEK COMFORT CURVE STRIP VI SCH ×3 (00:46→12:10)
[2023-09-27 05:38] LABS: Alanine Aminotransferase 32 U/L (7-40); Albumin 2.9 g/dL (3.2-4.8); Alkaline Phosphatase 97 U/L (46-116); Anion Gap 8 (5-15); Aspartate Aminotransferase 38 U/L (13-40); BUN/Creatinine Ratio 51.4 (10.0-20.0); Blood Urea Nitrogen 19 mg/dL (9-23); Calcium 8.2 mg/dL (8.7-10.4); Carbon Dioxide 23 mmol/L (20-30); Chloride 105 mmol/L (98-107); Glucose 130 mg/dL (74-106); Magnesium 1.9 mg/dL (1.6-2.6); Potassium 4.3 mmol/L (3.5-5.1); Sodium 136 mmol/L (136-145)
[2023-09-27 05:39] LABS: Bilirubin, Total 0.4 mg/dL (0.2-1.0); Total Protein 5.4 g/dL (5.7-8.2)
[2023-09-27] MEDS: InsuLIN REG 1unit/0.01ml Soln (100units/ml) SC SCH ×3 (05:40→12:00)
[2023-09-27 07:07] LABS: Homocyst(e)ine 10.2 umol/L (0.0-21.3)
[2023-09-27] MEDS: POTASSIUM EFFERVESENT TAB 25 MEQ PO SCH (09:27)
[2023-09-27] MEDS: NIFEdipine ER 30 MG TAB PO SCH (09:28)
[2023-09-27] MEDS: ATORVASTATIN 20 MG TAB PO SCH (09:28)
[2023-09-27] MEDS: CYANOCOBALAMIN 500 MCG TAB PO SCH (09:28)
[2023-09-27] MEDS: PANTOPRAZOLE 40 MG/10 ML VIAL INJ IV SCH (09:28)
[2023-09-27] MEDS: DOCUSATE SOD 100 MG CAP PO SCH (09:29)
[2023-09-27] MEDS: SODIUM CHLOR 0.9% PF (SALINE LOCK) 10ML VIAL/SYR IV SCH (09:29)
[2023-09-27] MEDS ORDERED: SODIUM PHOSPHATES 30 MEQ in D5W 5% 250 ML IV ONE (11:30)
[2023-09-27] MEDS: HYDROcodone-ACET 5/325MG TAB PO PRN (12:09)
[2023-09-27 14:40] LABS: Base Excess 1.1 mmol/L (-2.0-2.0)
[2023-09-27 15:43] LABS: COVID19 ANTIGEN SOFIA FIA NEGATIVE (NEGATIVE)
[2023-09-27] MEDS ORDERED: TPN PER PHARMACY IV NR ×9 (20:00)
== END 2023-09-27 18:51 | DRG 378 ==
LOC: EDBD 12:36 → ER 12:36 → EDUNIT# 12:36 → TELE 16:03 → TELE-WESTW 09-15 08:03
PROVIDERS: ADMIT Family Medicine; ATTEND Family Medicine
PROC: 02HV33Z Insertion of Infusion Device into Superior Vena Cava, Percutaneous Approach (ICD-10-PCS; principal; 2023-09-17)
PROC: B548ZZA Ultrasonography of Superior Vena Cava, Guidance (ICD-10-PCS; 2023-09-17)
PROC: 3E0436Z Introduction of Nutritional Substance into Central Vein, Percutaneous Approach (ICD-10-PCS; 2023-09-17)
DX: K62.5 Hemorrhage of anus and rectum (principal); E44.1 Mild protein-calorie malnutrition; N39.0 Urinary tract infection, site not specified; F03.90 Unspecified dementia, unspecified severity, without behavioral disturbance, psychotic disturbance, mood disturbance, and anxiety; R32 Unspecified urinary incontinence; R15.9 Full incontinence of feces; I10 Essential (primary) hypertension; Z20.822 Contact with and (suspected) exposure to COVID-19; B96.20 Unspecified Escherichia coli [E. coli] as the cause of diseases classified elsewhere; E78.00 Pure hypercholesterolemia, unspecified; E87.6 Hypokalemia; K83.8 Other specified diseases of biliary tract; K62.89 Other specified diseases of anus and rectum; R62.7 Adult failure to thrive; F17.200 Nicotine dependence, unspecified, uncomplicated; Z88.0 Allergy status to penicillin; Z90.710 Acquired absence of both cervix and uterus; Z90.49 Acquired absence of other specified parts of digestive tract; Z95.0 Presence of cardiac pacemaker; Z82.49 Family history of ischemic heart disease and other diseases of the circulatory system; Z79.899 Other long term (current) drug therapy; Z68.28 Body mass index [BMI] 28.0-28.9, adult; K57.33 Diverticulitis of large intestine without perforation or abscess with bleeding
CPT/HCPCS: 36415; 36569; 71045; 73502; 74176; 80053; 80069; 81001; 82270; 82962; 83090; 83690; 83735; 84100; 84478; 85025; 85610; 85730; 86850; 86900; 86901; 87040; 87077; 87086; 87088; 87186; 87426; 94640; 96361; 96374; 97110; 97116; 97163; 97530; C9113; G0378; J1815; J1956; J3480; J3490; J7060; J7131